=== PATIENT | male | born 1970 | race Caucasian/White ===

== ENCOUNTER 2019-06-10 10:48 | Emergency (ER) | payer MEDICAID ==
[~2019-06-10] VITALS: Ht 170.2 cm; Wt 167.8 kg
--- NOTE | 2019-06-10 11:19 | NUR ---
DR MARTINEZ AT BEDSIDE FOR EVAL.
[2019-06-10] MEDS ORDERED: IPRATROPIUM NEB FS 0.5 MG/2.5 ML AMPUL.NEB NEB ONE (11:30)
[2019-06-10] MEDS ORDERED: ALBUTEROL FS 2.5 MG/0.5 ML VIAL.NEB NEB ONE (11:30)
--- NOTE | 2019-06-10 11:42 | NUR ---
RT AT BEDSIDE FOR BREATHING TREATMENT.
[2019-06-10] MEDS ORDERED: ALBUTEROL FS 2.5 MG/0.5 ML VIAL.NEB ONE (11:44)
[2019-06-10] MEDS ORDERED: IPRATROPIUM NEB FS 0.5 MG/2.5 ML AMPUL.NEB ONE (11:44)
[2019-06-10 11:45] LABS: BASOPHILS % (AUTO) 0.4 % (0.0-2.0); EOSINOPHILS % (AUTO) 1.2 % (0.0-6.0); HEMATOCRIT 34 % (39-51); HEMOGLOBIN 11.1 g/dL (13.5-17.5); LYMPHOCYTES # (AUTO) 1.5 /CMM (0.8-4.8); LYMPHOCYTES % (AUTO) 18.2 % (20.0-44.0); MEAN CORPUSCULAR HGB CONC 33 g/dl (31.0-36.0); MEAN CORPUSCULAR VOLUME 85 fL (80-96); MONOCYTES # (AUTO) 0.4 /CMM (0.1-1.30); MONOCYTES % (AUTO) 4.9 % (2.0-12.0); NEUTROPHILS % (AUTO) 75.3 % (43.0-81.0); PLATELET COUNT (AUTO) 160 /CMM (150-450); RED BLOOD CELL COUNT(AUTO) 3.96 MIL/uL (4.5-6.0)
[2019-06-10 11:55] LABS: CARBON DIOXIDE 26 mmol/L (21-32); CHLORIDE 102 mmol/L (98-107); CREATININE 1.2 mg/dL (0.6-1.3); GLUCOSE 192 mg/dL (74-106); POTASSIUM 3.8 mmol/L (3.5-5.1); SODIUM SERUM 138 mmol/L (136-145); UREA NITROGEN, BLOOD 21 mg/dL (7-18)
[2019-06-10] MEDS ORDERED: IV NS 0.9% 250 ML IV ONE (11:59)
[2019-06-10] MEDS ORDERED: CT SWABBABLE VALVE TRANS SET 1 EA INFUS.SET MC ONE (11:59)
[2019-06-10] MEDS ORDERED: IOHEXOL-350 100 ML VIAL IV ONE ×2 (11:59→12:48)
[2019-06-10] MEDS ORDERED: INSU100V7 SQ (12:06)
[2019-06-10] MEDS ORDERED: ASPI-992 PO (12:06)
[2019-06-10] MEDS ORDERED: GLIP5TAB13 PO (12:06)
[2019-06-10] MEDS ORDERED: METO50TA16 PO (12:06)
[2019-06-10] MEDS ORDERED: GABA300C PO (12:06)
[2019-06-10] MEDS ORDERED: ARIP5TAB20 PO (12:06)
[2019-06-10] MEDS ORDERED: TERA2CAP4 PO (12:06)
[2019-06-10] MEDS ORDERED: METF-442 PO (12:06)
[2019-06-10] MEDS ORDERED: FURO-144 PO (12:06)
[2019-06-10] MEDS ORDERED: WARF7.5T23 PO (12:06)
[2019-06-10] MEDS ORDERED: ESCI10TA PO (12:06)
[2019-06-10] MEDS ORDERED: LORA0.5T PO (12:06)
[2019-06-10] MEDS ORDERED: ISOS30TA6 PO (12:06)
[2019-06-10] MEDS ORDERED: INSU100V3 SQ (12:06)
[2019-06-10] MEDS ORDERED: ATOR10TA PO (12:06)
--- NOTE | 2019-06-10 12:30 | NUR ---
RADIOLOGY AT BEDSIDE FOR CHEST XRAY.
--- NOTE | 2019-06-10 12:40 | NUR ---
PT TO RADIOLOGY FOR CT PULMUNARY ANGIO VIA RFRACISCO.
[2019-06-10] MEDS ORDERED: MORPHINE SULFATE INJ 2 MG/ML DISP.SYRIN IV ONE (13:30)
[2019-06-10] MEDS ORDERED: MORPHINE SULFATE INJ 4 MG/ML DISP.SYRIN ONE (13:32)
[2019-06-10 14:16] VITALS: BP 136/84
--- NOTE | 2019-06-10 14:16 | NUR ---
Patient discharged to home in stable condition. Written and verbal after care instructions given. Patient verbalizes understanding of instruction.IV removed. Catheter intact and site benign. Pressure and 4x4 applied to site. No bleeding noted.
== END 2019-06-10 14:17 | disposition home or self-care (01) ==
LOC: ER 11:01
DX: R07.89 Other chest pain (principal); R06.02 Shortness of breath; I10 Essential (primary) hypertension; E78.00 Pure hypercholesterolemia, unspecified; E11.9 Type 2 diabetes mellitus without complications; Z98.890 Other specified postprocedural states; Z79.899 Other long term (current) drug therapy; Z79.4 Long term (current) use of insulin; Z79.01 Long term (current) use of anticoagulants; Z79.84 Long term (current) use of oral hypoglycemic drugs; Z79.82 Long term (current) use of aspirin
CPT/HCPCS: 36415; 71045; 71275; 80048; 84484; 85025; 93005; 94640; 96374; 99284; J2270; J7050; Q9967 ×2

== ENCOUNTER 2019-07-29 19:55 | Emergency (ER) | payer OTHER ==
[~2019-07-29] VITALS: Ht 170.2 cm; Wt 166.9 kg
[~2019-07-29 19:55] MED LIST: ARIP5TAB59 PO; ASPI-992 PO; ATOR10TA PO; ESCI10TA PO; FURO-144 PO; GABA300C PO; GLIP5TAB13 PO; INSU100V3 SQ; INSU100V7 SQ; ISOS30TA6 PO; LORA0.5T PO; METF-442 PO; METO50TA16 PO; TERA2CAP4 PO; WARF7.5T23 PO
--- NOTE | 2019-07-29 20:25 | NUR ---
BIBSELF FROM HOME. TO ER BED 10. AAOX4. PT BREATHING FAST, SATTING 99%. AMBULATORY. C/O INTERMITENT CHEST PAIN X 2 DAYS. RATES PAIN 06/16 RADIATING TO BACK W/ SENSATION OF TIGHTNESS AND PRESSURE. PT IS ALOS C/O GEN ABDOMINAL PAIN THAT HAS BEEN SINCE SATURDAY 06/16 AND REPORTS THAT HE HAD BLACK SOFT STOOL AND EVER SINCE HE HAS NOT HAD A BOWEL MOVEMENT. PT PLACED ON MONITOR. EKG DONE BY EMT AT BEDSIDE. AWAITING MD FOR EVAL.
--- NOTE | 2019-07-29 20:25 | NUR ---
IN BED CONNECTED TO MONITOR
--- NOTE | 2019-07-29 20:25 | NUR ---
Note undone in EDM - 07/29/19 at 2054 by SEAN BIBSELF FROM HOME. TO ER BED 10. AAOX4. PT BREATHING FAST, SATTING 99%. AMBULATORY. C/O INTERMITENT CHEST PAIN X 2 DAYS. RATES PAIN 06/16 RADIATING TO BACK W/ SENSATION OF TIGHTNESS AND PRESSURE. PT IS ALOS C/O GEN ABDOMINAL PAIN THAT HAS BEEN SINCE SATURDAY 06/16 AND REPORTS THAT HE HAD BLACK SOFT STOOL. PT PLACED ON MONITOR. EKG DONE BY EMT AT BEDSIDE. AWAITING MD FOR SANTHOSH.
[2019-07-29 21:00] LABS: BASOPHILS % (AUTO) 0.6 % (0.0-2.0); EOSINOPHILS % (AUTO) 2.3 % (0.0-6.0); HEMATOCRIT 30 % (39-51); HEMOGLOBIN 9.8 g/dL (13.5-17.5); LYMPHOCYTES # (AUTO) 1.6 /CMM (0.8-4.8); MEAN CORPUSCULAR HGB CONC 32 g/dl (31.0-36.0); MEAN CORPUSCULAR VOLUME 82 fL (80-96); MONOCYTES # (AUTO) 0.4 /CMM (0.1-1.30); NEUTROPHILS % (AUTO) 69.1 % (43.0-81.0); PLATELET COUNT (AUTO) 153 /CMM (150-450); RED BLOOD CELL COUNT(AUTO) 3.67 MIL/uL (4.5-6.0); WHITE BLOOD COUNT (AUTO) 7.2 K/uL (4.3-11.0)
--- NOTE | 2019-07-29 21:04 | NUR ---
AT BEDSIDE FOR EVAL
[2019-07-29 21:17] LABS: CARBON DIOXIDE 35 mmol/L (21-32); CHLORIDE 101 mmol/L (98-107); CREATININE 0.9 mg/dL (0.6-1.3); GLUCOSE 86 mg/dL (74-106); POTASSIUM 4.2 mmol/L (3.5-5.1); SODIUM SERUM 138 mmol/L (136-145); UREA NITROGEN, BLOOD 16 mg/dL (7-18)
[2019-07-29] MEDS ORDERED: ONDANSETRON HCL/PF 4 MG/2 ML VIAL ONE (22:28)
[2019-07-29] MEDS ORDERED: MAG HYDROX/AL HYDROX/SIMETH 30 ML UDC ONE (22:28)
[2019-07-29] MEDS ORDERED: MAG HYDROX/AL HYDROX/SIMETH 30 ML UDC PO ONE (22:30)
[2019-07-29] MEDS ORDERED: ONDANSETRON HCL/PF - ER 4 MG/2 ML VIAL IV ONE (22:30)
[2019-07-30 00:36] VITALS: BP 114/64
--- NOTE | 2019-07-30 00:36 | NUR ---
Patient discharged to home in stable condition. Written and verbal after care instructions given. Patient verbalizes understanding of instruction.IV removed. Catheter intact and site benign. Pressure and 4x4 applied to site. No bleeding noted. Pt ambulatory with a steady gait
== END 2019-07-30 00:37 | disposition home or self-care (01) ==
LOC: ER 19:58
DX: R07.89 Other chest pain (principal); K59.00 Constipation, unspecified; I11.0 Hypertensive heart disease with heart failure; I50.9 Heart failure, unspecified; E78.00 Pure hypercholesterolemia, unspecified; E11.9 Type 2 diabetes mellitus without complications; Z86.718 Personal history of other venous thrombosis and embolism; Z98.890 Other specified postprocedural states; Z79.899 Other long term (current) drug therapy; Z79.4 Long term (current) use of insulin; Z79.82 Long term (current) use of aspirin; Z79.01 Long term (current) use of anticoagulants
CPT/HCPCS: 36415; 71045; 74022; 80048; 84484 ×2; 85025; 85730; 93005 ×3; 96374; 99284; J2405 ×2

== ENCOUNTER 2024-07-16 12:45 | Emergency (ER) | payer OTHER, MEDICAID ==
[~2024-07-16] VITALS: Ht 175.3 cm; Wt 132.4 kg
[~2024-07-16 12:45] MED LIST changes: -ASPI-992 PO; -ATOR10TA PO; +ATOR40TA PO; +BUPR300T52 PO; +CLOP75TA15 PO; +CYCL5TAB PO; +EMPA10TA PO; +FLUT1BLS12 IH; +FLUT1DIS3 IH; -GLIP5TAB13 PO; +IPRA3AMP23 IH; -ISOS30TA6 PO; +LISI20TA30 PO; +METF-441 PO; -METF-442 PO; -METO50TA16 PO; +NITR0.4T48 SL; +OXYC-128 PO; +PANT40TA2 PO; -TERA2CAP4 PO; +TOPI100T38 PO; -WARF7.5T23 PO; +ZAFI10TA2 PO
[2024-07-16 13:04] LABS: BASOPHILS % (AUTO) 0.6 % (0.0-2.0); EOSINOPHILS # (AUTO) 0.1 K/uL (0.0-0.7); EOSINOPHILS % (AUTO) 2.1 % (0.0-6.0); HEMATOCRIT 27 % (39-51); LYMPHOCYTES % (AUTO) 15.3 % (20.0-44.0); MEAN CORPUSCULAR HEMOGLOBIN 32 PG (26.0-33.0); MEAN CORPUSCULAR HGB CONC 34 g/dl (31.0-36.0); MEAN CORPUSCULAR VOLUME 95 fL (80-96); MONOCYTES # (AUTO) 0.4 K/uL (0.1-1.30); MONOCYTES % (AUTO) 6.6 % (2.0-12.0); NEUTROPHILS # (AUTO) 4.8 K/uL (1.8-8.9); NEUTROPHILS % (AUTO) 75.4 % (43.0-81.0); PLATELET COUNT (AUTO) 142 K/uL (150-450); RED CELL DISTRIBUTION WIDTH 15.9 % (11.5-15.0); WHITE BLOOD COUNT (AUTO) 6.4 K/uL (4.3-11.0)
[2024-07-16 13:16] LABS: CARBON DIOXIDE 26 mmol/L (21-32); CHLORIDE 103 mmol/L (98-107); CREATININE 1.4 mg/dL (0.6-1.3); GLUCOSE 141 mg/dL (74-106); POTASSIUM 3.3 mmol/L (3.5-5.1); SODIUM SERUM 140 mmol/L (136-145); UREA NITROGEN, BLOOD 12 mg/dL (7-18)
[2024-07-16 13:28] LABS: NT-PRO BNP 585 pg/mL (0-125)
[2024-07-16] MEDS ORDERED: ASPIRIN 325 MG TABLET ONE (14:14)
[2024-07-16] MEDS: ASPIRIN 325 MG TABLET PO ONE (14:19)
[2024-07-16] MEDS ORDERED: IOHEXOL-350 100 ML VIAL IV ONE (14:32)
[2024-07-16] MEDS ORDERED: IV NS 0.9% 250 ML IV ONE (14:35)
[2024-07-16] MEDS ORDERED: CT SWABBABLE VALVE TRANS SET 1 EA INFUS.SET MC ONE (14:35)
[2024-07-16] MEDS ORDERED: ONDANSETRON HCL/PF 4 MG/2 ML VIAL ONE (15:13)
[2024-07-16] MEDS: ONDANSETRON HCL/PF 4 MG/2 ML VIAL IV ONE (15:19)
[2024-07-16 16:55] VITALS: BP 108/69; TEMP 98.1; O2SAT 96
== END 2024-07-16 16:57 | disposition short-term general hospital (02) ==
LOC: ER 12:53
DX: I11.0 Hypertensive heart disease with heart failure (principal); I50.9 Heart failure, unspecified; R07.9 Chest pain, unspecified; I95.9 Hypotension, unspecified; R00.0 Tachycardia, unspecified; M79.89 Other specified soft tissue disorders; R06.02 Shortness of breath; R09.89 Other specified symptoms and signs involving the circulatory and respiratory systems; E78.00 Pure hypercholesterolemia, unspecified; E66.9 Obesity, unspecified; E11.9 Type 2 diabetes mellitus without complications; G40.909 Epilepsy, unspecified, not intractable, without status epilepticus; I48.91 Unspecified atrial fibrillation; Z79.02 Long term (current) use of antithrombotics/antiplatelets; Z79.4 Long term (current) use of insulin; Z79.51 Long term (current) use of inhaled steroids; Z79.84 Long term (current) use of oral hypoglycemic drugs; Z79.899 Other long term (current) drug therapy; Z86.73 Personal history of transient ischemic attack (TIA), and cerebral infarction without residual deficits
CPT/HCPCS: 99285; 96374; 93005; 71045; 71275; 85025; 80048; 85378; 36415; 84484 ×2; 83880; 80320; J2405; J7050; Q9967; G0480

== ENCOUNTER 2024-07-20 19:01 | Emergency (ER) | payer OTHER, MEDICAID ==
[~2024-07-20] VITALS: Ht 175.3 cm; Wt 132.0 kg
[2024-07-20 19:30] LABS: BASOPHILS % (AUTO) 0.7 % (0.0-2.0); EOSINOPHILS # (AUTO) 0.3 K/uL (0.0-0.7); EOSINOPHILS % (AUTO) 5.1 % (0.0-6.0); HEMATOCRIT 25 % (39-51); HEMOGLOBIN 8.3 g/dL (13.5-17.5); LYMPHOCYTES # (AUTO) 0.7 K/uL (0.8-4.8); LYMPHOCYTES % (AUTO) 14.2 % (20.0-44.0); MEAN CORPUSCULAR HEMOGLOBIN 32 PG (26.0-33.0); MEAN CORPUSCULAR HGB CONC 33 g/dl (31.0-36.0); MEAN CORPUSCULAR VOLUME 95 fL (80-96); MONOCYTES # (AUTO) 0.3 K/uL (0.1-1.30); MONOCYTES % (AUTO) 6.9 % (2.0-12.0); NEUTROPHILS # (AUTO) 3.7 K/uL (1.8-8.9); NEUTROPHILS % (AUTO) 73.1 % (43.0-81.0); PLATELET COUNT (AUTO) 126 K/uL (150-450); RED BLOOD CELL COUNT(AUTO) 2.61 MIL/uL (4.5-6.0); RED CELL DISTRIBUTION WIDTH 15.5 % (11.5-15.0)
[2024-07-20 19:49] LABS: CARBON DIOXIDE 27 mmol/L (21-32); CHLORIDE 104 mmol/L (98-107); CREATININE 1.5 mg/dL (0.6-1.3); GLUCOSE 113 mg/dL (74-106); NT-PRO BNP 417 pg/mL (0-125); POTASSIUM 3.5 mmol/L (3.5-5.1); SODIUM SERUM 139 mmol/L (136-145); UREA NITROGEN, BLOOD 14 mg/dL (7-18)
[2024-07-20 19:58] LABS: CALCIUM, SERUM 9.7 mg/dL (8.5-10.1)
[2024-07-20] MEDS ORDERED: KETOROLAC TROMETHAMINE INJ 30 MG/ML VIAL IM ONE (20:00)
[2024-07-20] MEDS ORDERED: LORAZEPAM 1 MG TABLET PO ONE (20:00)
[2024-07-20 21:36] VITALS: BP 127/79; TEMP 98.8; O2SAT 99
== END 2024-07-20 21:36 | disposition left against medical advice (07) ==
LOC: ER 19:08
DX: R07.89 Other chest pain (principal); R06.02 Shortness of breath; E11.9 Type 2 diabetes mellitus without complications; E66.9 Obesity, unspecified; E78.00 Pure hypercholesterolemia, unspecified; I11.0 Hypertensive heart disease with heart failure; I50.9 Heart failure, unspecified; I25.10 Atherosclerotic heart disease of native coronary artery without angina pectoris; I48.91 Unspecified atrial fibrillation; Z79.02 Long term (current) use of antithrombotics/antiplatelets; Z79.4 Long term (current) use of insulin; Z79.51 Long term (current) use of inhaled steroids; Z79.84 Long term (current) use of oral hypoglycemic drugs; Z79.899 Other long term (current) drug therapy; Z86.73 Personal history of transient ischemic attack (TIA), and cerebral infarction without residual deficits; Z85.21 Personal history of malignant neoplasm of larynx
CPT/HCPCS: 36415; 71045-TC; 80048-TC; 83880; 84484-TC; 85025-TC

== ENCOUNTER 2024-07-29 22:44 | Emergency (ER) | payer OTHER, MEDICAID ==
[~2024-07-29] VITALS: Ht 175.3 cm; Wt 136.5 kg
[2024-07-29 23:30] LABS: BASOPHILS % (AUTO) 0.5 % (0.0-2.0); EOSINOPHILS # (AUTO) 0.2 K/uL (0.0-0.7); EOSINOPHILS % (AUTO) 3.5 % (0.0-6.0); HEMATOCRIT 26 % (39-51); HEMOGLOBIN 8.8 g/dL (13.5-17.5); LYMPHOCYTES # (AUTO) 1.1 K/uL (0.8-4.8); LYMPHOCYTES % (AUTO) 17.1 % (20.0-44.0); MEAN CORPUSCULAR HEMOGLOBIN 32 PG (26.0-33.0); MEAN CORPUSCULAR HGB CONC 34 g/dl (31.0-36.0); MEAN CORPUSCULAR VOLUME 95 fL (80-96); MONOCYTES # (AUTO) 0.4 K/uL (0.1-1.30); NEUTROPHILS # (AUTO) 4.8 K/uL (1.8-8.9); NEUTROPHILS % (AUTO) 72.9 % (43.0-81.0); PLATELET COUNT (AUTO) 149 K/uL (150-450); RED BLOOD CELL COUNT(AUTO) 2.77 MIL/uL (4.5-6.0); RED CELL DISTRIBUTION WIDTH 15.3 % (11.5-15.0); WHITE BLOOD COUNT (AUTO) 6.6 K/uL (4.3-11.0)
[2024-07-29 23:34] LABS: CARBON DIOXIDE 23 mmol/L (21-32); CHLORIDE 107 mmol/L (98-107); CREATININE 1.3 mg/dL (0.6-1.3); GLUCOSE 127 mg/dL (74-106); POTASSIUM 3.6 mmol/L (3.5-5.1); SODIUM SERUM 138 mmol/L (136-145); UREA NITROGEN, BLOOD 14 mg/dL (7-18)
[2024-07-29 23:47] LABS: NT-PRO BNP 304 pg/mL (0-125)
[2024-07-30 03:20] VITALS: BP 102/61; TEMP 98.2; O2SAT 98
== END 2024-07-30 03:20 | disposition short-term general hospital (02) ==
LOC: ER 22:53
DX: R07.9 Chest pain, unspecified (principal); E11.9 Type 2 diabetes mellitus without complications; E78.00 Pure hypercholesterolemia, unspecified; I11.0 Hypertensive heart disease with heart failure; I50.9 Heart failure, unspecified; I48.91 Unspecified atrial fibrillation; Z79.02 Long term (current) use of antithrombotics/antiplatelets; Z79.4 Long term (current) use of insulin; Z79.51 Long term (current) use of inhaled steroids; Z79.84 Long term (current) use of oral hypoglycemic drugs; Z79.899 Other long term (current) drug therapy; Z86.73 Personal history of transient ischemic attack (TIA), and cerebral infarction without residual deficits
CPT/HCPCS: 36415; 71045-TC; 80048-TC; 83880; 84484-TC; 85025-TC

== ENCOUNTER 2024-08-12 17:57 | Emergency (ER) | payer OTHER, MEDICAID ==
[~2024-08-12] VITALS: Ht 170.2 cm; Wt 108.9 kg
[2024-08-12 18:17] LABS: BASOPHILS % (AUTO) 0.6 % (0.0-2.0); EOSINOPHILS # (AUTO) 0.2 K/uL (0.0-0.7); HEMATOCRIT 28 % (39-51); HEMOGLOBIN 9.3 g/dL (13.5-17.5); LYMPHOCYTES # (AUTO) 0.8 K/uL (0.8-4.8); LYMPHOCYTES % (AUTO) 11.9 % (20.0-44.0); MEAN CORPUSCULAR HEMOGLOBIN 32 PG (26.0-33.0); MEAN CORPUSCULAR HGB CONC 34 g/dl (31.0-36.0); MEAN CORPUSCULAR VOLUME 94 fL (80-96); MONOCYTES # (AUTO) 0.3 K/uL (0.1-1.30); MONOCYTES % (AUTO) 5.1 % (2.0-12.0); NEUTROPHILS # (AUTO) 5.4 K/uL (1.8-8.9); NEUTROPHILS % (AUTO) 79.4 % (43.0-81.0); PLATELET COUNT (AUTO) 147 K/uL (150-450); RED BLOOD CELL COUNT(AUTO) 2.94 MIL/uL (4.5-6.0); RED CELL DISTRIBUTION WIDTH 14.2 % (11.5-15.0); WHITE BLOOD COUNT (AUTO) 6.8 K/uL (4.3-11.0)
[2024-08-12] MEDS ORDERED: MORPHINE SULFATE INJ 4 MG/ML DISP.SYRIN ONE (18:39)
[2024-08-12] MEDS ORDERED: ONDANSETRON HCL/PF 4 MG/2 ML VIAL ONE (18:39)
[2024-08-12] MEDS: MORPHINE SULFATE INJ 2 MG/ML DISP.SYRIN IV ONE (18:45)
[2024-08-12] MEDS: ONDANSETRON HCL/PF 4 MG/2 ML VIAL IVP ONE (18:45)
[2024-08-12 18:46] LABS: CALCIUM, SERUM 9.5 mg/dL (8.5-10.1); CARBON DIOXIDE 23 mmol/L (21-32); CHLORIDE 109 mmol/L (98-107); CREATININE 1.5 mg/dL (0.6-1.3); GLUCOSE 112 mg/dL (74-106); POTASSIUM 4.2 mmol/L (3.5-5.1); SODIUM SERUM 139 mmol/L (136-145); UREA NITROGEN, BLOOD 14 mg/dL (7-18)
[2024-08-12 21:59] VITALS: BP 127/80; TEMP 98.2; O2SAT 99
== END 2024-08-12 23:04 | disposition short-term general hospital (02) ==
LOC: ER 18:22
DX: R07.89 Other chest pain (principal); E11.9 Type 2 diabetes mellitus without complications; E66.9 Obesity, unspecified; E78.00 Pure hypercholesterolemia, unspecified; I11.0 Hypertensive heart disease with heart failure; I48.91 Unspecified atrial fibrillation; I50.9 Heart failure, unspecified; Z79.02 Long term (current) use of antithrombotics/antiplatelets; Z79.4 Long term (current) use of insulin; Z79.51 Long term (current) use of inhaled steroids; Z79.84 Long term (current) use of oral hypoglycemic drugs
CPT/HCPCS: 99285; 96374; 71045; 96375; 93005; 85025; 80048; 36415; 84484 ×2; J2270; J2405

== ENCOUNTER 2024-10-15 22:13 | Emergency (ER) | payer OTHER, MEDICAID ==
[~2024-10-15] VITALS: Ht 177.8 cm; Wt 113.4 kg
[2024-10-15 22:59] LABS: BASOPHILS % (AUTO) 0.4 % (0.0-2.0); EOSINOPHILS # (AUTO) 0.1 K/uL (0.0-0.7); EOSINOPHILS % (AUTO) 1.4 % (0.0-6.0); HEMATOCRIT 26 % (39-51); HEMOGLOBIN 9.1 g/dL (13.5-17.5); LYMPHOCYTES # (AUTO) 1.1 K/uL (0.8-4.8); LYMPHOCYTES % (AUTO) 15.9 % (20.0-44.0); MEAN CORPUSCULAR HEMOGLOBIN 30 PG (26.0-33.0); MEAN CORPUSCULAR HGB CONC 35 g/dl (31.0-36.0); MEAN CORPUSCULAR VOLUME 87 fL (80-96); MONOCYTES # (AUTO) 0.4 K/uL (0.1-1.30); MONOCYTES % (AUTO) 5.6 % (2.0-12.0); NEUTROPHILS # (AUTO) 5.3 K/uL (1.8-8.9); NEUTROPHILS % (AUTO) 76.7 % (43.0-81.0); PLATELET COUNT (AUTO) 139 K/uL (150-450); RED BLOOD CELL COUNT(AUTO) 3.01 MIL/uL (4.5-6.0); RED CELL DISTRIBUTION WIDTH 15.3 % (11.5-15.0); WHITE BLOOD COUNT (AUTO) 6.9 K/uL (4.3-11.0)
[2024-10-15 23:07] LABS: CALCIUM, SERUM 8.4 mg/dL (8.5-10.1); CARBON DIOXIDE 28 mmol/L (21-32); CHLORIDE 103 mmol/L (98-107); CREATININE 1.3 mg/dL (0.6-1.3); GLUCOSE 121 mg/dL (74-106); SODIUM SERUM 138 mmol/L (136-145); UREA NITROGEN, BLOOD 13 mg/dL (7-18)
[2024-10-15 23:13] LABS: INR 1.09 (0.91-1.10); PARTIAL THROMBOPLASTIN TIME 34.7 SEC (24.3-34.3); PROTHROMBIN TIME 11.5 SECS (9.2-11.1)
[2024-10-15 23:18] LABS: POTASSIUM 2.7 mmol/L (3.5-5.1)
[2024-10-15 23:20] LABS: ALANINE AMINOTRANSFERASE 32 U/L (12-78); ALBUMIN 3.2 g/dL (3.4-5.0); ALCOHOL, BLOOD < 3 mg/dL (0-10); ALKALINE PHOSPHATASE 226 U/L (46-116); ASPARTATE AMINOTRANSFERASE 26 U/L (15-37); BILIRUBIN,TOTAL 0.6 mg/dL (0.2-1.0); NT-PRO BNP 341 pg/mL (0-125); TOTAL PROTEIN, SERUM 6.7 g/dL (6.4-8.2)
[2024-10-15 23:44] LABS: AMPHETAMINE, URINE NEGATIVE (NEGATIVE); APPEARANCE,URINE CLEAR (CLEAR); BARBITURATE, URINE NEGATIVE (NEGATIVE); BENZODIAZEPINE, URINE NEGATIVE (NEGATIVE); BILIRUBIN,URINE NEGATIVE (NEGATIVE); BLOOD, URINE 2+ Ery/uL (NEGATIVE); COCCAINE, URINE NEGATIVE (NEGATIVE); COLOR,URINE YELLOW (YELLOW); KETONES,URINE NEGATIVE (NEGATIVE); LEUKOCYTE ESTERASE ,URINE NEGATIVE (NEGATIVE); NITRITE, URINE NEGATIVE (NEGATIVE); PH,URINE 6.5 (5.0-8.0); PHENCYCLIDINE SCREEN,URINE NEGATIVE (NEGATIVE); PROTEIN,URINE NEGATIVE (NEGATIVE); UGLUCOSE NEGATIVE (NEGATIVE)
[2024-10-15 23:46] LABS: CANNABINOID, URINE POSITIVE (NEGATIVE); OPIATE, URINE POSITIVE (NEGATIVE)
[2024-10-15] MEDS ORDERED: POTASSIUM CL. PREMIX PERIPHER. 100 ML ONE (23:49)
[2024-10-15 23:54] LABS: ADD URINE CULTURE NO; BACTERIA,URINE None seen /HPF (None Seen); SQUAMOUS EPITHELIAL CELL,UR Rare /HPF (None Seen); WBC,URINE 0-2 /HPF (0-3)
[2024-10-15] MEDS: POTASSIUM CL. PREMIX PERIPHER. 50 ML IV SCH (23:58)
[2024-10-16] MEDS ORDERED: TENECTEPLASE 50 MG KIT IV ONE (01:00)
[2024-10-16] MEDS: TNKASE WASTE DOCUMENTATION IV ONE (01:05)
[2024-10-16] MEDS: NORMAL SALINE FLUSH 10 ML SYR IV ONE ×2 (01:05)
[2024-10-16] MEDS: TENECTEPLASE 50 MG KIT IV ONE (01:07)
[2024-10-16] MEDS ORDERED: IOHEXOL-350 100 ML VIAL IV ONE (01:11)
[2024-10-16] MEDS ORDERED: diphenhydrAMINE HCL 50 MG/ML VIAL ONE (01:35)
[2024-10-16] MEDS ORDERED: methylPREDNISolone SOD SUCC 125 MG/2ML VIAL ONE (01:36)
[2024-10-16] MEDS: diphenhydrAMINE HCL 50 MG/ML VIAL IV ONE (01:41)
[2024-10-16] MEDS: methylPREDNISolone SOD SUCC 125 MG/2ML VIAL IV ONE (01:42)
[2024-10-16 04:21] VITALS: BP 153/79; TEMP 98.6; O2SAT 98
== END 2024-10-16 04:21 ==
LOC: ER 22:19
DX: I63.522 Cerebral infarction due to unspecified occlusion or stenosis of left anterior cerebral artery (principal); E11.9 Type 2 diabetes mellitus without complications; E78.00 Pure hypercholesterolemia, unspecified; G40.909 Epilepsy, unspecified, not intractable, without status epilepticus; I11.0 Hypertensive heart disease with heart failure; I50.9 Heart failure, unspecified; I48.91 Unspecified atrial fibrillation; I69.351 Hemiplegia and hemiparesis following cerebral infarction affecting right dominant side; R07.9 Chest pain, unspecified; R53.1 Weakness; Z79.02 Long term (current) use of antithrombotics/antiplatelets; Z79.4 Long term (current) use of insulin; Z79.51 Long term (current) use of inhaled steroids; Z79.84 Long term (current) use of oral hypoglycemic drugs; Z79.899 Other long term (current) drug therapy; Z87.09 Personal history of other diseases of the respiratory system; Z86.59 Personal history of other mental and behavioral disorders
CPT/HCPCS: 36415; 37195; 70450; 70496; 70498; 71045; 80053; 80307; 80320; 81001; 82962; 83735; 83880; 84484; 85025; 85610; 85730; 93005; 96361; 96374; 96375; 99291; A4223; J1200; J2919; J3101; J3480; Q9967; G0480

== ENCOUNTER 2025-01-20 21:59 | Emergency (ER) | payer OTHER, MEDICAID ==
[~2025-01-20] VITALS: Ht 170.2 cm; Wt 118.4 kg
[2025-01-20 22:44] LABS: BASOPHILS % (AUTO) 0.8 % (0.0-2.0); EOSINOPHILS # (AUTO) 0.2 K/uL (0.0-0.7); EOSINOPHILS % (AUTO) 2.9 % (0.0-6.0); HEMATOCRIT 27 % (39-51); HEMOGLOBIN 8.9 g/dL (13.5-17.5); LYMPHOCYTES # (AUTO) 0.9 K/uL (0.8-4.8); LYMPHOCYTES % (AUTO) 16.9 % (20.0-44.0); MEAN CORPUSCULAR HEMOGLOBIN 28 PG (26.0-33.0); MEAN CORPUSCULAR HGB CONC 33 g/dl (31.0-36.0); MEAN CORPUSCULAR VOLUME 85 fL (80-96); MONOCYTES # (AUTO) 0.4 K/uL (0.1-1.30); MONOCYTES % (AUTO) 6.9 % (2.0-12.0); NEUTROPHILS # (AUTO) 4.1 K/uL (1.8-8.9); NEUTROPHILS % (AUTO) 72.5 % (43.0-81.0); PLATELET COUNT (AUTO) 151 K/uL (150-450); RED BLOOD CELL COUNT(AUTO) 3.18 MIL/uL (4.5-6.0); RED CELL DISTRIBUTION WIDTH 15.8 % (11.5-15.0); WHITE BLOOD COUNT (AUTO) 5.6 K/uL (4.3-11.0)
[2025-01-20 22:53] LABS: CALCIUM, SERUM 9.7 mg/dL (8.5-10.1); CARBON DIOXIDE 25 mmol/L (21-32); CHLORIDE 106 mmol/L (98-107); CREATININE 1.1 mg/dL (0.6-1.3); GLUCOSE 124 mg/dL (74-106); POTASSIUM 3.7 mmol/L (3.5-5.1); SODIUM SERUM 138 mmol/L (136-145); UREA NITROGEN, BLOOD 22 mg/dL (7-18)
[2025-01-20] MEDS ORDERED: CT SWABBABLE VALVE TRANS SET 1 EA INFUS.SET MC ONE (23:00)
[2025-01-20] MEDS ORDERED: IOHEXOL-350 100 ML VIAL IV ONE (23:00)
[2025-01-20] MEDS ORDERED: IV NS 0.9% 250 ML IV ONE (23:00)
[2025-01-20 23:01] LABS: INR 1.32 (0.91-1.10); PARTIAL THROMBOPLASTIN TIME 42.5 SEC (24.3-34.3); PROTHROMBIN TIME 13.7 SECS (9.2-11.1)
[2025-01-20] MEDS ORDERED: ASPIRIN EC 325 MG TABLET.DR PO ONE (23:01)
[2025-01-20] MEDS: ASPIRIN 325 MG TABLET PO ONE (23:06)
[2025-01-20 23:10] LABS: ALANINE AMINOTRANSFERASE 14 U/L (12-78); ALBUMIN 3.2 g/dL (3.4-5.0); ALKALINE PHOSPHATASE 172 U/L (46-116); ASPARTATE AMINOTRANSFERASE 18 U/L (15-37); BILIRUBIN,DIRECT 0.2 mg/dL (0.0-0.2); BILIRUBIN,TOTAL 0.4 mg/dL (0.2-1.0); TOTAL PROTEIN, SERUM 7.4 g/dL (6.4-8.2)
[2025-01-20] MEDS ORDERED: NITROGLYCERIN 0.4 MG/TAB BOTTLE ONE (23:53)
[2025-01-20] MEDS: NITROGLYCERIN 0.4 MG/TAB BOTTLE SL ONE (23:59)
[2025-01-21 03:00] VITALS: BP 118/68; TEMP 98; O2SAT 97
== END 2025-01-21 03:01 | disposition home or self-care (01) ==
LOC: ER 22:04
DX: R07.9 Chest pain, unspecified (principal); E11.9 Type 2 diabetes mellitus without complications; E66.9 Obesity, unspecified; E78.00 Pure hypercholesterolemia, unspecified; I11.0 Hypertensive heart disease with heart failure; I50.9 Heart failure, unspecified; I48.91 Unspecified atrial fibrillation; Z79.02 Long term (current) use of antithrombotics/antiplatelets; Z79.4 Long term (current) use of insulin; Z79.51 Long term (current) use of inhaled steroids; Z79.84 Long term (current) use of oral hypoglycemic drugs; Z79.899 Other long term (current) drug therapy; Z86.73 Personal history of transient ischemic attack (TIA), and cerebral infarction without residual deficits; Z87.09 Personal history of other diseases of the respiratory system; Z85.21 Personal history of malignant neoplasm of larynx; Z86.59 Personal history of other mental and behavioral disorders; Z88.8 Allergy status to other drugs, medicaments and biological substances; Z68.41 Body mass index [BMI] 40.0-44.9, adult
CPT/HCPCS: 99285; 71275; 71045; 93005; 85025; 80048; 80076; 36415 ×2; 84484 ×2; 85730; 83880; J7050; Q9967

== ENCOUNTER 2025-05-05 08:09 | Inpatient (IN) | payer BC, OTHER ==
[~2025-05-05] VITALS: Ht 167.6 cm; Wt 127.9 kg
[2025-05-05 09:10] LABS: PLATELET COUNT (AUTO) 115 K/uL (150-450); RED BLOOD CELL COUNT(AUTO) 3.68 MIL/uL (4.5-6.0); RED CELL DISTRIBUTION WIDTH 16.8 % (11.5-15.0); WHITE BLOOD COUNT (AUTO) 5.0 K/uL (4.3-11.0)
[2025-05-05 09:20] LABS: CALCIUM, SERUM 9.3 mg/dL (8.5-10.1); CREATININE 1.6 mg/dL (0.6-1.3); SODIUM SERUM 143 mmol/L (136-145); UREA NITROGEN, BLOOD 21 mg/dL (7-18)
[2025-05-05 09:21] LABS: INR 1.36 (0.91-1.10)
[2025-05-05 09:26] LABS: ASPARTATE AMINOTRANSFERASE 19 U/L (15-37); TOTAL PROTEIN, SERUM 7.7 g/dL (6.4-8.2)
[2025-05-05 09:57] LABS: APPEARANCE,URINE CLEAR (CLEAR); BLOOD, URINE 2+ Ery/uL (NEGATIVE); LEUKOCYTE ESTERASE ,URINE NEGATIVE (NEGATIVE); NITRITE, URINE NEGATIVE (NEGATIVE); UGLUCOSE NEGATIVE (NEGATIVE)
[2025-05-05 10:49] LABS: ADD URINE CULTURE NO; SQUAMOUS EPITHELIAL CELL,UR Few /HPF (None Seen)
[2025-05-05] MEDS: IV NS 0.9% 1,000 ML BAG IV ONE (12:08)
[2025-05-05] MEDS ORDERED: MORPHINE SULFATE INJ 4 MG/ML DISP.SYRIN ONE (12:37)
[2025-05-05] MEDS: MORPHINE SULFATE INJ 2 MG/ML DISP.SYRIN IV ONE (12:46)
[2025-05-05] MEDS: IV D5/0.45 NACL 1,000 ML IV ONE (12:47)
[2025-05-05] MEDS ORDERED: POTASSIUM CHLORIDE 20 MEQ TAB.PRT.SR PO ONE (13:32)
[2025-05-05] MEDS: POTASSIUM CHLORIDE 20 MEQ TAB.PRT.SR PO ONE (13:34)
[2025-05-05] MEDS ORDERED: POTASSIUM CL. PREMIX PERIPHER. 100 ML ONE (15:03)
[2025-05-05] MEDS: POTASSIUM CL. PREMIX PERIPHER. 50 ML IV SCH (15:24)
[2025-05-05] MEDS ORDERED: LEVO25TA7 PO (15:30)
[2025-05-05] MEDS ORDERED: TAMS-12 PO (15:30)
[2025-05-05] MEDS ORDERED: DULO30CA2 PO (15:30)
[2025-05-05] MEDS ORDERED: ISOS30TA9 PO (15:30)
[2025-05-05] MEDS ORDERED: GABA800T11 PO (15:30)
[2025-05-05] MEDS ORDERED: POTA-88 PO (15:30)
[2025-05-05] MEDS ORDERED: MIRT-90 PO (15:30)
[2025-05-05] MEDS ORDERED: METF-442 PO (15:30)
[2025-05-05] MEDS ORDERED: ASPI-1169 PO (15:30)
[2025-05-05] MEDS ORDERED: DABI150C PO (15:30)
[2025-05-05] MEDS ORDERED: FERR-68 PO (15:30)
[2025-05-05] MEDS ORDERED: MONT10TA22 PO (15:30)
[2025-05-05] MEDS ORDERED: OMEP20CA15 PO (15:30)
[2025-05-05] MEDS ORDERED: ARIP5TAB59 PO (15:30)
[2025-05-05] MEDS ORDERED: LORA0.5T PO (15:30)
[2025-05-05] MEDS ORDERED: SUCR1TAB PO (15:30)
[2025-05-05] MEDS ORDERED: TOPI25TA49 PO (15:33)
[2025-05-05] MEDS ORDERED: ACET-2030 PO (15:33)
[2025-05-05] MEDS ORDERED: HYDR-4209 PO (15:33)
[2025-05-05] MEDS ORDERED: DOCU250C14 PO (15:33)
[2025-05-05] MEDS ORDERED: ONDANSETRON HCL/PF 4 MG/2 ML VIAL IVP PRN (16:00)
[2025-05-05] MEDS ORDERED: IV LR 500 ML IV SCH (16:00)
[2025-05-05] MEDS ORDERED: MORPHINE SULFATE INJ 2 MG/ML DISP.SYRIN IV PRN (16:00)
[2025-05-05] MEDS ORDERED: Z GUARD REMEDY 4 OZ OINT TP PRN (16:00)
[2025-05-05] MEDS ORDERED: ACETAMINOPHEN 325 MG TABLET PO PRN (16:00)
[2025-05-05] MEDS: GABAPENTIN 100 MG CAPSULE PO ONE (16:00)
[2025-05-05 16:35] LABS: LDL 56 mg/dL (0-99)
[2025-05-05 16:50] VITALS: BP 142/99; TEMP 97.3; O2SAT 100
[2025-05-05] MEDS: LORAZEPAM 0.5 MG TABLET PO SCH (16:56)
[2025-05-05] MEDS: ARIPIPRAZOLE 5 MG TABLET PO SCH (16:56)
[2025-05-05] MEDS: DABIGATRAN ETEXILATE MESYLATE 75 MG CAPSULE PO SCH (16:57)
[2025-05-05] MEDS: TOPIRAMATE 25 MG TABLET PO SCH (16:58)
[2025-05-05] MEDS: IV LR 1000 ML 1,000 ML IV PRN (17:04)
[2025-05-05] MEDS: GABAPENTIN 400 MG CAPSULE PO ONE (17:27)
[2025-05-05] MEDS ORDERED: ATORVASTATIN 40 MG TABLET PO SCH (22:00)
[2025-05-05] MEDS ORDERED: MIRTAZAPINE 15 MG TABLET PO SCH (22:00)
[2025-05-05] MEDS ORDERED: MONTELUKAST SODIUM (10MG) 10 MG TABLET PO SCH (22:00)
[2025-05-05] MEDS ORDERED: TAMSULOSIN 0.4 MG CAP.SR.24H PO SCH (22:00)
[2025-05-06] MEDS ORDERED: PANTOPRAZOLE 40 MG TABLET.DR PO SCH (07:30)
[2025-05-06] MEDS ORDERED: ISOSORBIDE MONONITRATE (30MG) 30 MG TAB.SR.24H PO SCH (09:00)
[2025-05-06] MEDS ORDERED: ASPIRIN 81 MG TAB.CHEW PO SCH (09:00)
[2025-05-06] MEDS ORDERED: DULOXETINE HCL 30 MG CAPSULE.DR PO SCH (09:00)
[2025-05-06] MEDS ORDERED: LEVOTHYROXINE SODIUM 25 MCG TABLET PO SCH (09:00)
== END 2025-05-05 20:12 | DRG 439 ==
LOC: ER 08:19 → UNDOADMIN 15:42 → TELE1 15:42
PROVIDERS: ADMIT Nurse Practitioner Acute Care; ATTEND Nurse Practitioner Acute Care
DX: K85.90 Acute pancreatitis without necrosis or infection, unspecified (principal); D68.9 Coagulation defect, unspecified; N17.9 Acute kidney failure, unspecified; Z68.42 Body mass index [BMI] 45.0-49.9, adult; E87.6 Hypokalemia; D63.8 Anemia in other chronic diseases classified elsewhere; D69.6 Thrombocytopenia, unspecified; K74.60 Unspecified cirrhosis of liver; N20.0 Calculus of kidney; R59.0 Localized enlarged lymph nodes; E66.01 Morbid (severe) obesity due to excess calories; K57.90 Diverticulosis of intestine, part unspecified, without perforation or abscess without bleeding; Z79.84 Long term (current) use of oral hypoglycemic drugs; Z79.899 Other long term (current) drug therapy; Z79.890 Hormone replacement therapy; Z79.82 Long term (current) use of aspirin; E78.1 Pure hyperglyceridemia; T43.025A Adverse effect of tetracyclic antidepressants, initial encounter; Y92.099 Unspecified place in other non-institutional residence as the place of occurrence of the external cause; R31.9 Hematuria, unspecified; R35.0 Frequency of micturition
CPT/HCPCS: 36415; 71045-TC; 80048-TC; 80061-TC; 80076-TC; 81001; 83690-TC; 83880; 84484-TC; 85025-TC; 85730-TC; 87081-TC; 87086-TC; A4223; G0378; J2270; J3480; J7040; J7120